=== PATIENT | female | born 1960 | race Caucasian/White ===

== ENCOUNTER 2018-03-16 08:15 | Emergency (ER) | payer OTHER ==
[2018-03-16] MEDS ORDERED: IPRATROPIUM/ALBUTEROL 3 ML DEYVIAL IH ONE (08:35)
--- NOTE | 2018-03-16 08:41 | CPEKG ---
Heart Rate: 84 RR Interval: 714 P-R Interval: 124 QRSD Interval: 90 QT Interval: 380 QTC Interval: 450 P [place]: 60 QRS [place]: 31 T Wave [place]: 59 EKG Severity - ABNORMAL ECG - EKG Impression: SINUS RHYTHM EKG Impression: CONSIDER LEFT VENTRICULAR HYPERTROPHY EKG Impression: BORDERLINE INFERIOR Q WAVES Electronically Signed By: Radha Ortiz 16-Mar-2018 09:48:01
--- NOTE | 2018-03-16 08:51 | EDPHY ---
H & P Time Seen by Provider: 03/16/18 08:20 HPI/ROS: CHIEF COMPLAINT: Cough, chest tightness HISTORY OF PRESENT ILLNESS: This is a 57-year-old female presents emergency department reporting that 3 days ago she developed cough which was initially dry. She now has a hacking, uncomfortable, painful cough which feels wet but she is unable to bring any mucus up. No fever. Symptoms did start with some upper respiratory congestion. No vomiting or diarrhea. No history of asthma, COPD, reactive airways disease. She did have pneumonia in the past. She also reports severe spasm in her lower back which started this morning while coughing. No radiation of the discomfort into her legs. No coronary artery disease, congestive heart failure, or hypertension. No history of diabetes. Patient received an influenza vaccination this year. She does work at the physician's office. She reports 2 weeks ago she had a flu-like illness with fevers, cough, and body ache, but this did resolve prior to the onset these symptoms. No history of DVTs or PEs. No family history of thromboembolic disease. No fever, chills, palpitations, vomiting, diarrhea, urinary complaints, headache , lightheadedness. REVIEW OF SYSTEMS: Aside from elements discussed in the HPI, a comprehensive 10-point review of systems was reviewed and is negative. PAST MEDICAL HISTORY: Pneumonia. Lumbar spine fusion SOCIAL HISTORY: Nonsmoker. VITAL SIGNS: see nurse's notes. GENERAL: Well-developed, well-nourished, uncomfortable secondary to back spasm.. Harsh, hacking cough. HEENT: Atraumatic Eyes: PERRL, EOMI, no conjunctival injection. Right eye is slightly watery. Nose: No discharge. Mouth: moist mucous membranes. Pharynx : no erythema, no exudates, no swelling, no abscess. Uvula is midline. NECK: Supple, no adenopathy, no meningismus, no tenderness. Negative Kernig's and Brudzinski's. LUNGS: Slightly diminished but clear. No wheezes. No rhonchi or rales. CARDIAC: Borderline tachycardia, no rubs murmurs or gallops. ABDOMEN: Soft, nontender, bowel sounds normal. BACK: No CVA tenderness. No midline tenderness. She does have a scar over the lower lumbar spine. Paraspinal muscle spasm is present. EXTREMITIES: Normal, no edema, FROM. NEURO: Alert and oriented, grossly nonfocal. SKIN: Warm and dry, no rash. PSYCHIATRIC: Normal mentation, no agitation. Smoking Status: Former smoker Constitutional: Initial Vital Signs Temperature (C) 37 C 03/16/18 08:19 Heart Rate 100 03/16/18 08:19 Respiratory Rate 16 03/16/18 08:19 Blood Pressure 153/96 H 03/16/18 08:19 O2 Sat (%) 96 03/16/18 08:19 O2 Delivery Mode Room Air Allergies/Adverse Reactions: cefazolin [From Anc] Allergy (Verified 03/16/18 08:19) Pt reports rash Home Medications: Medication Instructions Recorded Albuterol [Proventil Inhaler HFA 1 - 2 puffs IH Q4H #1 mdi 03/16/18 (*)] Azithromycin [Zithromax] 250 mg PO DAILY #6 tab 03/16/18 Cyclobenzaprine [Flexeril 10 MG 10 mg PO TID PRN #20 tab 03/16/18 (RX)] Lyrica 03/16/18 Zoloft 50mg (*) 03/16/18 predniSONE 40 mg PO DAILY #6 tab 03/16/18 Medical Decision Making - Diagnostics EKG Interpretation: 12-LEAD EKG: Please see the full report in [facility]. My interpretation: Normal sinus rhythm. Imaging Results: Imaging Impressions Chest X-Ray 03/16/18 08:36 Impression: Suspect airways disease. No pneumonia. Imaging: I viewed and interpreted images myself ED Course/Re-evaluation: 57-year-old female presents to the emergency department with a cough and cold symptoms for the last 3 days which follows influenza this 2 weeks ago. Patient is also complaining of back spasm secondary to significant coughing. Patient received a DuoNeb. Following this she was re-examined. Her chest discomfort has lessened but not completely resolved. She is moving better air. Chest x-ray demonstrates no pneumonia and is consistent with airways disease. Patient received an albuterol nebulizer treatment. She was given 60 mg of prednisone. She received 15 mg of Toradol IM for back spasm as well as a lidocaine patch. Patient was discharged with prednisone prescription as well as albuterol for her respiratory symptoms. She received Flexeril prescription for her back spasm. She was also given a prescription for azithromycin to use if needed if she continues to have significant cough and chest tightness or develops a fever over the next several days. Differential Diagnosis: Differential diagnosis for the patient's cough was considered including but not limited to viral versus bacterial bronchitis, asthma, COPD, pulmonary emboli, upper respiratory infection, lower respiratory infection, and bronchospasm. - Data Points Medications Given: Discontinued Medications Albuterol/Ipratropium (Duoneb) 3 ml IH EDNOW ONE Stop: 03/16/18 08:36 Last Admin: 03/16/18 08:39 Dose: 3 ml Departure - Departure Disposition: Home, Routine, Self-Care Clinical Impression: Reactive airway disease, Back muscle spasm Condition: Good Instructions: Reactive Airways Disease (ED), Muscle Spasm (ED) Additional Instructions: For your cough and chest tightness: 1. Please use the metered dose inhaler to help control your coughing. 2. You been given a prescription of prednisone. Please take this as directed for the next 3 days starting tomorrow. For your back spasm: 1. I recommend Ibuprofen (Motrin, Advil) or Naproxen Sodium (Aleve) for pain and anti-inflammatory effects. You may take either one, but do not take both. Your dose is: Ibuprofen 600 mg every 6-8 hours with food. OR Naproxen Sodium (Aleve) 220 mg every 12 hours. 2. For muscle relaxation, you been given a prescription of Flexeril. Please take this as directed. It may make you sleepy. 3. For pain relief, I also suggest lidocaine patches. 4% lidocaine patches are available [id number]. You are also being provided with a prescription for azithromycin. If you continue a significant cough, develop a fever, or are not improving as expected with the albuterol meter dose inhaler and prednisone, you may begin taking azithromycin. Referrals: YANCY PATEL [Primary Care Provider] - As per Instructions Prescriptions: Albuterol [Proventil Inhaler HFA (*)] 1 - 2 puffs IH Q4H #1 mdi predniSONE 40 mg PO DAILY #6 tab
[2018-03-16] MEDS ORDERED: KETOROLAC 15 MG/1 ML SDV IM ONE (09:09)
[2018-03-16] MEDS ORDERED: ACETAMINOPHEN 500 MG TAB PO ONE (09:09)
[2018-03-16] MEDS ORDERED: LIDOCAINE 4%/MENTHOL 1% PATCH TD ONE (09:09)
[2018-03-16] MEDS ORDERED: ALBUTEROL 3 ML DEYVIAL IH ONE (09:10)
[2018-03-16] MEDS ORDERED: predniSONE 20 MG TAB PO ONE (09:10)
[2018-03-16 09:44] VITALS: BP 125/79
[2018-03-16] MEDS ORDERED: PATCH REMOVAL 1 EA PATCH TD SCH (21:00)
== END 2018-03-16 09:43 | disposition home or self-care (01) ==
LOC: CED 08:15
DX: J45.909 Unspecified asthma, uncomplicated (principal); M62.830 Muscle spasm of back; Z87.891 Personal history of nicotine dependence
CPT/HCPCS: 71046-PO; J1885; J7512; J7613